=== PATIENT | female | born 1960 | race Caucasian/White ===

== ENCOUNTER → 2024-04-04 09:59 | Outpatient (REF) | payer BC, SELFPAY | LOC: WDC 09:59 | PROVIDERS: ATTENDING PHYSICIAN Obstetrics & Gynecology; FAMILY PHYSICIAN Family Medicine | DX: Z78.0 Asymptomatic menopausal state (principal); Z12.31 Encounter for screening mammogram for malignant neoplasm of breast | CPT/HCPCS: 77063; 77067; 77080 ==

== ENCOUNTER → 2024-04-12 08:57 | Outpatient (REF) | payer BC, SELFPAY | LOC: WDC 08:57 | PROVIDERS: ATTENDING PHYSICIAN Obstetrics & Gynecology; FAMILY PHYSICIAN Family Medicine | DX: R92.8 Other abnormal and inconclusive findings on diagnostic imaging of breast (principal) | CPT/HCPCS: 76642 ==